=== PATIENT | female | born 1940 | race Two or more races ===

== ENCOUNTER 2018-10-23 08:21 | Inpatient (IN) | payer OTHER ==
[~2018-10-23] VITALS: Ht 149.9 cm; Wt 67.1 kg
[2018-11-20] MEDS ORDERED: DIOVAN320 MG PO (09:26)
[2018-11-20] MEDS ORDERED: SYNTHROID88 MCG PO (09:26)
[2018-11-20] MEDS ORDERED: TENORMIN100 M1 PO (09:27)
[2018-11-20] MEDS ORDERED: ASA81 MG PO (09:27)
[2018-12-20] MEDS ORDERED: TRAMADOL HCL50 MG PO (14:55)
[2018-12-20] MEDS ORDERED: XARELTO10 MG PO (14:55)
[2018-12-20] MEDS ORDERED: NORFLEX100MG PO (14:55)
[2018-12-20] MEDS ORDERED: NeurRONTin 100mg cap PO (14:55)
== END 2018-12-20 17:56 | DRG 470 ==
LOC: SURG 11-20 07:00 → O/R 12-18 09:07 → SURG 12-18 09:07
PROVIDERS: ADMIT Orthopaedic Surgery
PROC: 0SRC0J9 Replacement of Right Knee Joint with Synthetic Substitute, Cemented, Open Approach (ICD-10-PCS; principal; 2018-12-18 08:30)
DX: M17.11 Unilateral primary osteoarthritis, right knee (principal); D62 Acute posthemorrhagic anemia; I10 Essential (primary) hypertension; E03.8 Other specified hypothyroidism; Z78.9 Other specified health status

== ENCOUNTER 2021-04-12 09:00 | Outpatient (CLI) | payer OTHER ==
[~2021-04-12 09:00] MED LIST: ASA81 MG PO; DIOVAN320 MG PO; NORFLEX100MG PO; NeurRONTin 100mg cap PO; SYNTHROID88 MCG PO; TENORMIN100 M1 PO; TRAMADOL HCL50 MG PO; XARELTO10 MG PO
== END 2021-04-12 09:15 | disposition home or self-care (01) ==
LOC: PPH VACUNA 09:00
PROVIDERS: ATTEND Emergency Medicine Pediatric Emergency Medicine
DX: Z23 Encounter for immunization (principal)